=== PATIENT | male | born 1975 | race Caucasian/White ===

== ENCOUNTER 2016-09-23 02:00 | Emergency (ER) | payer OTHER ==
[2016-09-23 02:36] VITALS: BP 124/80; TEMP 98
[2016-09-23] MEDS ORDERED: DiphenhydrAMINE 12.5 mg/5 ml LIQ UD (5 ml) PO STA (02:46)
[2016-09-23] MEDS ORDERED: Aluminum Hydroxide/Magnesium Hydroxide Susp (30 mL) PO STA (02:46)
[2016-09-23] MEDS ORDERED: Aluminum Hydroxide/Magnesium Hydroxide Susp (30 mL) ONE (02:58)
--- NOTE | 2016-09-23 04:23 | C.PDOC ---
History Of Present Illness Patient is a 41 year old who presents to the ER with a complaint of burning epigastric pain that runs up to his chest and throat that began after eating spicy food. Patient reports he is constantly burping. Denies any shortness of breath, nausea, or vomiting. Time Seen by Provider: 09/23/16 02:34 Chief Complaint (Nursing): GI Problem History Per: Patient History/Exam Limitations: no limitations Onset/Duration Of Symptoms: Hrs Current Symptoms Are (Timing): Still Present Context: Food (Spicy) Location Of Pain/Discomfort: Epigastric Radiation Of Pain To:: Chest, Other (Throat) Quality Of Discomfort: Burning Associated Symptoms: denies: Fever, Nausea, Vomiting, Diarrhea Past Medical History Reviewed: Historical Data, Nursing Documentation, Vital Signs Vital Signs: Last Vital Signs Temp 98 F 09/23/16 02:24 Pulse 80 09/23/16 04:30 Resp 15 09/23/16 04:30 BP 124/80 09/23/16 02:24 Pulse Ox 99 09/23/16 05:14 Family History: States: Unknown Family Hx - Social History Hx Alcohol Use: Yes Hx Substance Use: Yes - Immunization History Hx Tetanus Toxoid Vaccination: No Hx Influenza Vaccination: No Hx Pneumococcal Vaccination: No Review Of Systems Except As Marked, All Systems Reviewed And Found Negative. Constitutional: Negative for: Fever, Chills Cardiovascular: Positive for: Chest Pain. Negative for: Palpitations Respiratory: Negative for: Cough, Shortness of Breath Gastrointestinal: Positive for: Abdominal Pain (Epigastric). Negative for: Nausea, Vomiting, Diarrhea Physical Exam - Physical Exam Appears: Well, Non-toxic Skin: Normal Color, Warm, Dry Head: Atraumatic, Normacephalic Oral Mucosa: Moist Throat: Normal Cardiovascular: Rhythm Regular Respiratory: Normal Breath Sounds, No Rales, No Rhonchi, No Wheezing Gastrointestinal/Abdominal: Soft, No Tenderness Neurological/Psych: Oriented x3, Normal Speech, Normal Cognition ED Course And Treatment ECG: Interpreted By Me, Viewed By Me ECG Rhythm: Sinus Rhythm (64) ECG Interpretation: Normal O2 Sat by Pulse Oximetry: 99 (Room air) Pulse Ox Interpretation: Normal Progress Note: EKG ordered and reviewed. Benadryl PO, Maalox PO, and Pepcid PO administered. Patient feels better, will be discharged home. Disposition - Disposition Referrals: Non [facility] Provider, [Primary Care Provider] - Disposition: HOME/ ROUTINE Disposition Time: 04:21 Condition: IMPROVED Additional Instructions: Follow up with your PMD within 1-2 days. return to Ed if feel worse. Prescriptions: Famotidine [Pepcid] 20 mg PO BID #20 tab Instructions: Gastroesophageal Reflux Disease (ED) - Clinical Impression Clinical Impression: Reflux esophagitis - Scribe Statement The provider has reviewed the documentation as recorded by the Scribnick Resendez All medical record entries made by the Cely were at my direction and personally dictated by me. I have reviewed the chart and agree that the record accurately reflects my personal performance of the history, physical exam, medical decision making, and the department course for this patient. I have also personally directed, reviewed, and agree with the discharge instructions and disposition.
[2016-09-23 04:32] VITALS: PULSE 80; RESP 15
[2016-09-23 05:08] VITALS: O2SAT 99
--- NOTE | 2016-09-23 22:25 | CARD ---
APPROVED REPORT EKG Measurement Heart [id number] <Conclusion> Normal sinus rhythm with sinus arrhythmia Normal ECG
== END 2016-09-23 04:29 | disposition home or self-care (01) ==
LOC: SUPCPDRO 02:00 → C.ER 02:00
DX: K21.0 Gastro-esophageal reflux disease with esophagitis (principal)

== ENCOUNTER 2016-10-17 19:48 | Emergency (ER) | payer OTHER ==
[2016-10-17 19:56] VITALS: TEMP 98.1
[2016-10-17] MEDS ORDERED: Aluminum Hydroxide/Magnesium Hydroxide Susp (30 mL) PO STA (20:26)
[2016-10-17] MEDS ORDERED: Aluminum Hydroxide/Magnesium Hydroxide Susp (30 mL) ONE (20:31)
--- NOTE | 2016-10-17 20:48 | C.PDOC ---
History Of Present Illness Patient is a 41 year old male with a history of stomach problems who presents to the ER with a complaint of frequent burping. Patient was seen a few weeks ago in the ER for similar symptoms where he was provided with an Rx for pepcid which improved his condition. Patient states he has an appointment with his medical practice administrator this coming Friday, 10/21, but has run out of medications and would like something to help him until his appointment date. Denies any fever, chills, vomiting, or nausea. denies abdominal pain. Time Seen by Provider: 10/17/16 20:13 Chief Complaint (Nursing): GI Problem History Per: Patient History/Exam Limitations: no limitations Onset/Duration Of Symptoms: Hrs Current Symptoms Are (Timing): Still Present Quality Of Discomfort: Gas (Frequent Burping) Associated Symptoms: denies: Fever, Chills, Nausea, Vomiting Past Medical History Reviewed: Historical Data, Nursing Documentation, Vital Signs Vital Signs: Last Vital Signs Temp 98.1 F 10/17/16 19:52 Pulse 70 10/17/16 20:51 Resp 17 10/17/16 20:51 BP 119/65 10/17/16 20:51 Pulse Ox 100 10/17/16 22:55 - Medical History PMH: No Chronic Diseases Surgical History: No Surg Hx Family History: States: Unknown Family Hx - Social History Hx Alcohol Use: Yes Hx Substance Use: Yes - Immunization History Hx Tetanus Toxoid Vaccination: No Hx Influenza Vaccination: Yes Hx Pneumococcal Vaccination: No Review Of Systems Constitutional: Negative for: Fever, Chills Gastrointestinal: Positive for: Other (Frequent burping). Negative for: Nausea , Vomiting Physical Exam - Physical Exam Appears: Well, Non-toxic Skin: Normal Color, Warm, Dry Head: Atraumatic, Normacephalic Oral Mucosa: Moist Cardiovascular: Rhythm Regular, No Murmur Respiratory: Normal Breath Sounds, No Rales, No Rhonchi, No Wheezing Gastrointestinal/Abdominal: Bowel Sounds, Soft, No Tenderness, No Guarding, No Rebound Neurological/Psych: Oriented x3, Normal Speech, Normal Cognition ED Course And Treatment O2 Sat by Pulse Oximetry: 100 (Room air) Pulse Ox Interpretation: Normal Progress Note: Patient treated with maalox with improvement to condition. Will give Rx for pepcid. Will advise patient to stop use of ETOH and tobacco. Disposition Counseled Patient/Family Regarding: Diagnosis, Need For Followup, Rx Given, Smoking Cessation - Disposition Referrals: Ramses Jaramillo MD [Primary Care Provider] - Disposition: HOME/ ROUTINE Disposition Time: 20:46 Condition: STABLE Additional Instructions: Stop smoking, no drinking of alcohol. Avoid foods that cause you to be gassy. Follow up with medical practice administrator on Friday as scheduled. Return to ER for any worsening symptoms. Prescriptions: Famotidine [Pepcid] 20 mg PO DAILY #14 tab Instructions: Gastritis (ED), Diet for Ulcers and Gastritis (ED), Gastroesophageal Reflux Disease (ED) - Clinical Impression Clinical Impression: Reflux esophagitis - Scribe Statement The provider has reviewed the documentation as recorded by the Scribe Rich Resendez All medical record entries made by the Bernardibnick were at my direction and personally dictated by me. I have reviewed the chart and agree that the record accurately reflects my personal performance of the history, physical exam, medical decision making, and the department course for this patient. I have also personally directed, reviewed, and agree with the discharge instructions and disposition.
[2016-10-17 20:52] VITALS: BP 119/65; PULSE 70; RESP 17
[2016-10-17 21:51] VITALS: O2SAT 100
== END 2016-10-17 20:52 | disposition home or self-care (01) ==
LOC: SUPCPDRO 19:48 → C.ER 19:48
DX: K21.9 Gastro-esophageal reflux disease without esophagitis (principal)

== ENCOUNTER 2016-11-03 16:13 | Emergency (ER) | payer OTHER ==
[2016-11-03] MEDS ORDERED: Alum-Mag Hydrox-Simethicone Susp (30 mL) PO STA (16:40)
[2016-11-03] MEDS ORDERED: Alum-Mag Hydrox-Simethicone Susp (30 mL) ONE (16:48)
--- NOTE | 2016-11-03 17:04 | C.PDOC ---
History Of Present Illness 41 year old male presents to the ED with complaints of vague chest discomfort with GI reflux also complains of firm object noted at site of umbilical hernia and tension in right muscular flank. He also notes taking pepcid in the morning for reflux and never uses maalox. Patient denies any falls, trauma, heavy lifting, or substance abuse. Time Seen by Provider: 11/03/16 16:33 Chief Complaint (Nursing): Chest Pain History Per: Patient History/Exam Limitations: no limitations Onset/Duration Of Symptoms: Hrs Current Symptoms Are (Timing): Still Present Quality: "Pain" Associated Symptoms: denies: Nausea, Diaphoresis Recent travel outside of the [place]: No Past Medical History Reviewed: Historical Data, Nursing Documentation, Vital Signs Vital Signs: Last Vital Signs Temp 98 F 11/03/16 16:18 Pulse 65 11/03/16 16:18 Resp 17 11/03/16 16:18 BP 126/72 11/03/16 16:18 Pulse Ox 100 11/03/16 17:08 Family History: States: Unknown Family Hx - Social History Hx Alcohol Use: No Hx Substance Use: Yes - Immunization History Hx Tetanus Toxoid Vaccination: No Hx Influenza Vaccination: Yes Hx Pneumococcal Vaccination: No Review Of Systems Constitutional: Negative for: Fever, Chills, Sweats Cardiovascular: Positive for: Other (vague chest discomfort). Negative for: Palpitations Respiratory: Negative for: Cough, Shortness of Breath, Wheezing Gastrointestinal: Positive for: Other (firm object noted at the site of umbilical hernia ). Negative for: Nausea, Vomiting, Diarrhea Musculoskeletal: Positive for: Other (right muscular flank tension ) Physical Exam - Physical Exam Appears: Non-toxic, No Acute Distress Skin: Warm, Dry, No Rash Head: Atraumatic Eye(s): bilateral: Normal Inspection Oral Mucosa: Moist Neck: Normal ROM, Supple Chest: Symmetrical, No Deformity Cardiovascular: Rhythm Regular Respiratory: No Rales, No Rhonchi, No Stridor, No Wheezing Gastrointestinal/Abdominal: Soft, No Tenderness, No Distention, No Guarding, No Rebound, Other (status post umbilial hernia repair with mesh beneath with firm plastic edges ) Back: Other (mild muscular tenderness to right flank ) Extremity: Normal ROM, No Tenderness Neurological/Psych: Oriented x3 ED Course And Treatment ECG: Interpreted By Me ECG Rhythm: Sinus Rhythm ECG Interpretation: Normal Rate From EC O2 Sat by Pulse Oximetry: 100 (room air ) Pulse Ox Interpretation: Normal - Radiology CXR: Interpreted by Me CXR Interpretation: Yes: No Acute Disease Progress Note: pepcid, motrin, ice pack, maalox. Reevaluation Time: 17:08 Reassessment Condition: Improved Medical Decision Making Medical Decision Making: chornic GERD instructed Pepcid 20 mg Q12 Maalox 30 cc 5x/day Umbilical hernia repired well pt feels firm mesh beneath no defects reassured L flank muscular pain ice motrin L chest discomfort prob GERD related ? mild positionality CXR neg. normal EKG LOW susp of cardiac w/u deferred by pt with informed consent. opt f/u. Disposition Doctor Will See Patient In The: Office Counseled Patient/Family Regarding: Studies Performed, Diagnosis - Disposition Referrals: Ramses Jaramillo MD [Medical Doctor] - Disposition: HOME/ ROUTINE Disposition Time: 17:03 Condition: GOOD Additional Instructions: GERD: pepcid 20 mg 9AM and 9PM Maalox 30 cc's 4-5x/day as needed GERD diet Umbilical Hernia Repar Good repair Muscle Strain ice packs and motrin as needed. Follow-up with your PMD as needed. Instructions: Gastroesophageal Reflux Disease (ED), Musculoskeletal Pain (ED), Umbilical Hernia Repair in Children (GEN) - Clinical Impression Clinical Impression: Chest discomfort, Muscle strain, GERD (gastroesophageal reflux disease), H/O umbilical hernia repair - Scribe Statement The provider has reviewed the documentation as recorded by the Scribnick Butt All medical record entries made by the Scribe were at my direction and personally dictated by me. I have reviewed the chart and agree that the record accurately reflects my personal performance of the history, physical exam, medical decision making, and the department course for this patient. I have also personally directed, reviewed, and agree with the discharge instructions and disposition.
--- NOTE | 2016-11-03 17:11 | RAD ---
HISTORY: L chest discomfort COMPARISON: No prior. TECHNIQUE: Chest PA and lateral FINDINGS: LUNGS: No active pulmonary disease. PLEURA: No significant pleural effusion identified. No pneumothorax apparent. CARDIOVASCULAR: Normal. OSSEOUS STRUCTURES: No significant abnormalities. VISUALIZED UPPER ABDOMEN: Normal. OTHER FINDINGS: None. IMPRESSION: No active disease.
[2016-11-03 17:19] VITALS: O2SAT 100
[2016-11-03 17:22] VITALS: BP 126/72; PULSE 65; RESP 17; TEMP 98
--- NOTE | 2016-11-05 00:10 | CARD ---
APPROVED REPORT EKG Measurement Heart [id number] <Conclusion> Normal sinus rhythm Normal ECG
== END 2016-11-03 17:22 | disposition home or self-care (01) ==
LOC: C.ER 16:13
DX: K21.9 Gastro-esophageal reflux disease without esophagitis (principal); R07.89 Other chest pain; T14.8 Other injury of unspecified body region; X58.XXXA Exposure to other specified factors, initial encounter; Z98.890 Other specified postprocedural states